=== PATIENT | female | born 1950 | race Caucasian/White ===

== ENCOUNTER → 2018-08-14 | Outpatient (CLI) | payer MEDICARE ==
--- NOTE | 2018-08-14 21:10 | BD ---
EXAMINATION TYPE: Axial Bone Density DATE OF EXAM: 08/14/2018 COMPARISON: NONE CLINICAL HISTORY: 68 YR OLD FEMALE....ICD-10 CODE: V49.81 ASYMPTOMATIC POST MC STATE Height: 60.5 Weight: 173 FRAX RISK QUESTIONS: Glucocorticoids (More than 3mos): YES (Ex: prednisone, prednisolone, methylprednisolone, dexamethasone, and hydrocortisone). RISK FACTORS HISTORY OF: History of Wrist Fracture: RT WRIST, < 50 YR OLD Diet low in dairy products/other sources of calcium: YES Postmenopausal woman: YES, AT ABOUT 54 YRS OLD Lost more than 2 inches in height since high school: NOT QUITE MEDICATIONS: Prednisone or other steroids: ASTHMA, YES ON STEROIDS ON AND OFF FOR YRS Additional Medications: REFLUX MEDS PRN, MULTIVITAMIN Additional History: ASTHMA EXAM MEASUREMENTS: Bone mineral densitometry was performed using the [employer] System. Bone mineral density as measured about the Lumbar spine is: ----- L1-L4(G/cm2): 0.776 T Score Values are as follows: ----- L1: -3.7 ----- L2: -3.8 ----- L3: -2.7 ----- L4: -3.6 ----- L1-L4: -3.4 Bone mineral density FIRST BONE DENSITY SCAN.......BASELINE STUDY Bone mineral density about the R hip (g/cm2): 0.788 Bone mineral density about the L hip (g/cm2): 0.797 T Score values are as follows: -----R Neck: -2.4 -----L Neck: -2.5 -----R Total: -1.7 -----L Total: -1.7 Bone mineral density BASELINE STUDY FRAX%s: THERE IS A 21.0% CHANCE FOR A MAJOR OSTEOPOROTIC FX AND A 5.4% FOR HIP FX...PROBABILITY OF FX IN 10 YRS TIME IMPRESSION: Osteoporosis (T Score less than -2.5). There is increased fracture risk and therapy is usually indicated based on age. Re-Screen 1-2 years. NOTE: T-SCORE=SD OF THE YOUNG ADULT MEAN.
--- NOTE | 2018-08-17 09:35 | MM ---
Reason for exam: screening (asymptomatic). History: Patient is postmenopausal and is nulliparous. Family history of breast cancer in sister at age 33. Benign excisional biopsy of the right breast. Physical Findings: A clinical breast exam by your physician is recommended on an annual basis and results should be correlated with mammographic findings. MG 3D Screening Mammo W/Cad Bilateral CC and MLO view(s) were taken. No prior studies available for comparison. The breast tissue is heterogeneously dense. This may lower the sensitivity of mammography. There are two round circumscribed masses. One in the right breast lower inner quadrant and second in the upper outer quadrant. No suspicious abnormality on the left breast. ASSESSMENT: Incomplete: need additional imaging evaluation, BI-RAD 0 RECOMMENDATION: Ultrasound of the right breast. (upper outer quadrant and lower inner quadrant) [facility] will attempt to contact patient to return for ultrasound.
== END | disposition home or self-care (01) ==
LOC: RADMAMWWP 14:16
PROVIDERS: ATTEND Family Medicine
DX: Z12.31 Encounter for screening mammogram for malignant neoplasm of breast (principal); M81.0 Age-related osteoporosis without current pathological fracture; Z78.0 Asymptomatic menopausal state
CPT/HCPCS: 77063; 77067; 77080

== ENCOUNTER → 2018-08-31 | Outpatient (CLI) | payer MEDICARE ==
--- NOTE | 2018-08-31 09:10 | USB ---
Reason for exam: additional evaluation requested from abnormal screening. History: Patient is postmenopausal and is nulliparous. Family history of breast cancer in sister at age 33. Benign stereotactic core biopsy of the left breast, 1989. Benign excisional biopsy of the right breast. Physical Findings: Nurse did not find any significant physical abnormalities on exam. US Breast Workup Limited RT Right limited breast ultrasound including focal area of concern, retroareolar and axilla demonstrates a 0.4 x 0.6 x 0.7cm oval, cyst cluster at 4 o'clock versus complex cyst and likely corresponds to the mammographic finding. 6 month follow up recommended. Scanned upper outer quadrant and lower inner quadrant. These results were verbally communicated with the patient and result sheet given to the patient on 08/31/18. ASSESSMENT: Probably benign, BI-RAD 3 RECOMMENDATION: Follow-up diagnostic mammogram of the right breast in 6 months. MARIANN
== END | disposition home or self-care (01) ==
LOC: RADUSWWP 07:38
PROVIDERS: ATTEND Family Medicine
DX: R92.8 Other abnormal and inconclusive findings on diagnostic imaging of breast (principal)

== ENCOUNTER → 2022-07-04 | Outpatient (CLI) | payer MEDICARE ==
--- NOTE | 2022-07-04 11:03 | MR ---
EXAMINATION TYPE: MR brain and iac wo/w con DATE OF EXAM: 07/04/2022 COMPARISON: None HISTORY: Abnormal hearing test left ear TECHNIQUE: Multiplanar, multisequence images of the brain and and IAC is performed without and with IV contrast, utilizing 7 mL intravenous Gadavist . FINDINGS: Diffusion weighted images demonstrate no evidence of a recent infarct or other diffusion ab normality. Mild generalized degenerative change. There is mild confluent a few focal areas of abnorma l signal seen within the white matter which are nonspecific but most typical of remote white matter i schemia.. The brain volume is age appropriate. Midline structures demonstrate normal morphology. The craniocervical junction appears within normal limits. Post contrast images demonstrate no abnormal enhancement. The dural venous sinuses appear pa tent. Ages of chronic sinusitis and the globes are intact. No evidence of cerebellopontine angle mass or acoustic schwannoma mastoid air cells are clear. IMPRESSION: 1. No evidence of cerebellopontine angle mass or acoustic schwannoma. 2. Chronic sinusitis 3. Degenerative and nonspecific white matter changes most typical of remote white matter ischemia.
== END | disposition home or self-care (01) ==
LOC: RADMRIMAIN 08:11
PROVIDERS: ATTEND Otolaryngology
DX: H91.92 Unspecified hearing loss, left ear (principal); J32.9 Chronic sinusitis, unspecified; R90.82 White matter disease, unspecified; R42 Dizziness and giddiness; I67.82 Cerebral ischemia
CPT/HCPCS: 70553; A9585

== ENCOUNTER → 2022-10-14 | Outpatient (CLI) | payer MEDICARE ==
--- NOTE | 2022-10-14 15:10 | BD ---
EXAMINATION TYPE: Axial Bone Density DATE OF EXAM: 10/14/2022 CLINICAL HISTORY: 72 years old Female. ICD-10 CODE: Z78.0 ASYMPTOMATIC MENOPAUSAL STATE Comparison: Prior DEXA bone scan report August 14, 2018 Height: 60 Weight: 151.6 FRAX RISK QUESTIONS: Alcohol (3 or more units per day): no Family History (Parent hip fracture): no Glucocorticoids (More than 3mos): no History of Fracture in Adulthood: no Secondary Osteoporosis: 1. Type 1 Diabetes: no 2. Hyperthyroidism: no 3. Menopause before 45: no 4. Malnutrition: no 5. Chronic liver disease: no Rheumatoid Arthritis: no Current Tobacco Use: no RISK FACTORS HISTORY OF: Hip Fracture (Right/Left): no Spine Fracture: no History of Wrist Fracture: no Surgery to Spine/Hip(right/left)/Wrist (right/left): no Family History of Osteoporosis: no Active: no Diet low in dairy products/other sources of calcium: yes Postmenopausal woman: yes Take estrogen and/or progesterone medications: no Lost more than 2 inches in height since high school: no Frequent falls: no Poor Health: no Hyperparathyroidism: no Adrenal Insufficiency: no MEDICATIONS: Prednisone or other steroids: none since 2019 Thyroid Medications:no Osteoporosis Medications: no Additional Medications: Reflux meds Additional History: EXAM MEASUREMENTS: Bone mineral densitometry was performed using the [employer] System. Bone mineral density as measured about the Lumbar spine is: ----- L1-L4(G/cm2): 0.752 T Score Values are as follows: ----- L1: -4.3 ----- L2: -3.9 ----- L3: -3.1 ----- L4: -3.3 ----- L1-L4: -3.6 Z Score Values are as follows: ----- L1: -2.8 ----- L2: -2.3 ----- L3: -1.5 ----- L4: -1.8 ----- L1-L4: -2.0 2018 study is not available for comparison Bone mineral density about the R hip (g/cm2): 0.718 Bone mineral density about the L hip (g/cm2): 0.759 T Score values are as follows: -----R Neck: -2.7 -----L Neck: -2.7 -----R Total: -2.3 -----L Total: -2.0 Z Score values are as follows: -----R Neck: -1.0 -----L Neck: -1.1 -----R Total: -0.9 -----L Total: -0.5 2019 study is not available FRAX%s: The graph provided illustrates a 16.7% chance for a major osteoporotic fx and a 5.0% chance f or the hips probability for fx in 10 years time. IMPRESSION: Osteoporosis (T Score less than -2.5) is redemonstrated. There is increased fracture risk and therapy is usually indicated based on age. Re-Screen 1-2 years. NOTE: T-SCORE=SD OF THE YOUNG ADULT MEAN.
--- NOTE | 2022-10-16 08:39 | MM ---
Reason for Exam: Screening (asymptomatic). Last mammogram was performed 1 year(s) and 1 month(s) ago. Patient History: Menarche at age 13. Patient has no children. Postmenopausal. 1990, Benign Stereotactic Core Biopsy on the left side. Benign Excisional Biopsy on the right side. Sister had breast cancer, age 33. Risk Values: Klarissa 5 year model risk: 5.1%. NCI Lifetime model risk: 13.6%. Prior Study Comparison: 08/14/2018 Bilateral Screening Mammogram, [facility]. 08/31/2018 Right Diagnostic Ultrasound, [facility]. 09/27/2021 Bilateral Screening Mammogram, [facility]. Tissue Density: The breast tissue is heterogeneously dense. This may lower the sensitivity of mammography. Findings: Analyzed By CAD. There is mammotome biopsy clip in the left breast redemonstrated. Benign-appearing bilateral axillary lymph nodes are again seen. There is no suspicious group of microcalcifications or new suspicious mass in either breast. Overall Assessment: Benign, BI-RAD 2 Management: Screening Mammogram of both breasts in 1 year. . Patient should continue monthly self-breast exams. A clinical breast exam by your physician is recommended on an annual basis. This exam should not preclude additional follow-up of suspicious palpable abnormalities. Note on Klarissa scores and lifetime risk: 1. A Klarissa score greater than 3% is considered moderate risk. If this is the case, consider specialist referral to assess eligibility for a risk reducing agent. 2. If overall lifetime risk for the development of breast cancer is 20% or higher, the patient may qualify for future screening with alternating mammogram and breast MRI. Electronically signed and approved by: Bradley Fernandes M.D.
== END | disposition home or self-care (01) ==
LOC: RADMAMWWP 13:52
PROVIDERS: ATTEND Family Medicine
DX: Z12.31 Encounter for screening mammogram for malignant neoplasm of breast (principal); M81.0 Age-related osteoporosis without current pathological fracture; M85.89 Other specified disorders of bone density and structure, multiple sites; Z78.0 Asymptomatic menopausal state; Z80.3 Family history of malignant neoplasm of breast
CPT/HCPCS: 77063; 77067; 77080

== ENCOUNTER → 2024-03-12 | Outpatient (CLI) | payer MEDICARE ==
--- NOTE | 2024-03-12 13:35 | XR ---
EXAMINATION TYPE: XR abdomen acute w cxr DATE OF EXAM: 03/12/2024 COMPARISON: 07/23/2014 INDICATION: Abdomen pain, constipation TECHNIQUE: Single frontal view of the chest is obtained. Abdomen is examined in supine and upright vi ews. FINDINGS: The heart size is normal. The pulmonary vasculature is normal. The lungs are clear. Hiatal hernia is present Normal colonic bowel gas is present. Psoas margins are normal. Organomegaly is not evident. No suspic ious air-fluid levels or differential air-fluid levels are evident. No free air is present. No mass e ffect is evident. IMPRESSION: 1. No acute pulmonary process. 2. No acute abdominal process. 3. Hiatal hernia [facility], , 03/12/2024 1:32 PM
[2024-03-12 13:45] LABS: Basophils % (A) 0 %; Eosinophils # (A) 0.1 k/uL (0-0.7); Eosinophils % (A) 1 %; HGB 15.9 gm/dL (11.4-16.0); Lymphocytes # (A) 0.8 k/uL (1.0-4.8); Lymphocytes % (A) 13 %; MCH 31.2 pg (25.0-35.0); MCHC 33.2 g/dL (31.0-37.0); MCV 94.1 fL (80.0-100.0); Mean Platelet Volume 7.9; Monocytes # (A) 0.3 k/uL (0-1.0); Monocytes % (A) 4 %; Neutrophils # (A) 5.2 k/uL (1.3-7.7); Neutrophils % (A) 80 %; Platelet Count 161 k/uL (150-450); RDW 13.5 % (11.5-15.5); WBC 6.5 k/uL (3.8-10.6)
[2024-03-12 13:56] LABS: ALT 14 U/L (4-34); AST 20 U/L (14-36); African American GFR (CKD) >90 (>60 ml/min/1.73 sqM); Albumin 4.6 g/dL (3.5-5.0); Albumin/Globulin Ratio 1.8; Alkaline Phosphatase 106 U/L (38-126); Amylase 42 U/L (30-110); Anion Gap 7 mmol/L; Blood Urea Nitrogen 11 mg/dL (7-17); Calcium 10.2 mg/dL (8.4-10.2); Carbon Dioxide 27 mmol/L (22-30); Chloride 103 mmol/L (98-107); Globulin 2.6 g/dL; Glucose 96 mg/dL (74-99); Lipase 91 U/L (23-300); Non-African American GFR(CKD) 83 (>60 ml/min/1.73 sqM); Potassium 3.5 mmol/L (3.5-5.1); Sodium 137 mmol/L (137-145); Total Bilirubin 1.3 mg/dL (0.2-1.3); Total Protein 7.2 g/dL (6.3-8.2)
== END ==
LOC: LABWHC1 12:46
PROVIDERS: ATTEND Family Medicine
DX: R10.9 Unspecified abdominal pain (principal); A05.9 Bacterial foodborne intoxication, unspecified
CPT/HCPCS: 36415; 74022; 80053; 82150; 83690; 85025